=== PATIENT | male | born 1955 | race African-American/Black ===

== ENCOUNTER 2019-07-14 19:34 | Emergency (ER) | payer MEDICARE, OTHER | END 2019-07-14 20:15 | disposition home or self-care (01) | LOC: ERS 19:34 | DX: M62.830 Muscle spasm of back (principal); I25.2 Old myocardial infarction; E78.5 Hyperlipidemia, unspecified; E78.00 Pure hypercholesterolemia, unspecified; I10 Essential (primary) hypertension; F17.210 Nicotine dependence, cigarettes, uncomplicated; Z79.899 Other long term (current) drug therapy | CPT/HCPCS: 99283 ==